=== PATIENT | male | born 1945 | race Caucasian/White ===

== ENCOUNTER 2016-11-29 14:29 | Outpatient (CLI) | payer MEDICARE, BC | END 2016-11-29 14:30 | disposition home or self-care (01) | DX: G47.33 Obstructive sleep apnea (adult) (pediatric) (principal) | CPT/HCPCS: 99214; G0463 ==

== ENCOUNTER 2017-09-20 08:40 | Outpatient (CLI) | payer MEDICARE, BC ==
[2017-09-20 10:32] LABS: BASOPHILS # (AUTO) 0.1 10^3/uL (0.0-0.1); BASOPHILS % (AUTO) 1.1 %; EOSINOPHILS # (AUTO) 0.2 10^3/uL (0.0-0.7); EOSINOPHILS % (AUTO) 2.3 %; LYMPHOCYTES # (AUTO) 1.9 10^3/uL (1.5-3.5); LYMPHOCYTES % (AUTO) 27.9 %; MEAN CORPUSCULAR HEMOGLOBIN 30.8 pg (27.0-31.0); MEAN PLATELET VOLUME 8.4 fL (7.4-11.4); MONOCYTES # (AUTO) 0.7 10^3/uL (0.0-1.0); NEUTROPHILS # (AUTO) 4.1 10^3/uL (1.5-6.6); NEUTROPHILS % (AUTO) 58.7 %; PLT - PLATELET COUNT 192 10^3/uL (130-450); RED BLOOD COUNT 5.18 10^6/uL (4.70-6.10); RED CELL DISTRIBUTION WIDTH 13.1 % (12.0-15.0); WHITE BLOOD COUNT 6.9 x10^3/uL (4.8-10.8)
[2017-09-20 10:48] LABS: ALBUMIN 4.3 g/dL (3.2-5.5); ALBUMIN/GLOBULIN RATIO 1.3 (1.0-2.2); ALKALINE PHOSPHATASE 50 IU/L (42-121); ALT ALANINE AMINOTRANSFERASE 31 IU/L (10-60); AST ASPARTATE AMINOTRANSFERASE 27 IU/L (10-42); BILIRUBIN,TOTAL 1.1 mg/dL (0.2-1.0); BUN - BLOOD UREA NITROGEN 17 mg/dL (6-20); CALCIUM 9.1 mg/dL (8.5-10.3); CARBON DIOXIDE - CO2 24 mmol/L (21-32); CHLORIDE 103 mmol/L (101-111); CHOL/HDL RATIO 5.5 (<5.0); CHOLESTEROL 198 mg/dL; CREATININE 1.1 mg/dL (0.6-1.2); GFR - MDRD 66 (>89); GLUCOSE 117 mg/dL (70-100); HDL CHOLESTEROL 36 mg/dL; LDL CHOLESTEROL,CALCULATED 131 mg/dL; LDL/HDL RATIO 3.6 (<3.6); SODIUM 136 mmol/L (135-145); TOTAL PROTEIN 7.5 g/dL (6.7-8.2); VLDL CHOLESTEROL 31 mg/dL
== END 2017-09-20 08:41 | disposition home or self-care (01) ==
LOC: LAB.F 08:40
PROVIDERS: ATTEND Nurse Practitioner Family
DX: G45.9 Transient cerebral ischemic attack, unspecified (principal); M85.80 Other specified disorders of bone density and structure, unspecified site; R03.0 Elevated blood-pressure reading, without diagnosis of hypertension; Z13.220 Encounter for screening for lipoid disorders
CPT/HCPCS: 36415; 80053; 80061; 83721; 84443; 85025

== ENCOUNTER 2017-11-09 09:42 | Outpatient (CLI) | payer MEDICARE, BC | END 2017-11-09 09:43 | disposition home or self-care (01) | LOC: SC 09:42 | PROVIDERS: ATTEND Nurse Practitioner Family | DX: G47.33 Obstructive sleep apnea (adult) (pediatric) (principal) | CPT/HCPCS: 99214; G0463; 99212 ==

== ENCOUNTER 2019-04-18 07:49 | Outpatient (CLI) | payer MEDICARE, BC ==
[2019-04-18 10:36] LABS: ALBUMIN 4.2 g/dL (3.2-5.5); ALBUMIN/GLOBULIN RATIO 1.4 (1.0-2.2); ALKALINE PHOSPHATASE 52 IU/L (42-121); ALT ALANINE AMINOTRANSFERASE 21 IU/L (10-60); AST ASPARTATE AMINOTRANSFERASE 19 IU/L (10-42); BILIRUBIN,TOTAL 0.7 mg/dL (0.2-1.0); BUN - BLOOD UREA NITROGEN 17 mg/dL (6-20); CALCIUM 9.3 mg/dL (8.5-10.3); CARBON DIOXIDE - CO2 24 mmol/L (21-32); CHLORIDE 105 mmol/L (101-111); CHOL/HDL RATIO 5.2 (<5.0); CHOLESTEROL 183 mg/dL; GFR - MDRD 73 (>89); GLUCOSE 123 mg/dL (70-100); HDL CHOLESTEROL 35 mg/dL; LDL CHOLESTEROL,CALCULATED 122 mg/dL; LDL/HDL RATIO 3.5 (<3.6); SODIUM 140 mmol/L (135-145); TOTAL PROTEIN 7.3 g/dL (6.7-8.2); VLDL CHOLESTEROL 26 mg/dL
[2019-04-18 10:49] LABS: HB2 TOTAL 16.9 g/dL; HEMOGLOBIN A1C 0.68 g/dL; HEMOGLOBIN A1C % 5.8 % (4.6-6.2)
== END 2019-04-18 07:50 | disposition home or self-care (01) ==
LOC: LAB.S 07:49
PROVIDERS: ATTEND Internal Medicine
DX: E78.5 Hyperlipidemia, unspecified (principal); R73.02 Impaired glucose tolerance (oral)
CPT/HCPCS: 36415; 80053; 80061; 83036; 83721

== ENCOUNTER 2019-06-13 10:15 | Outpatient (CLI) | payer MEDICARE, BC ==
[2019-06-13 11:15] VITALS: BP 118/70
--- NOTE | 2019-06-13 11:15 | SLEEP CARE CONSULTATION ---
Information from patient questionnaire entered by Charline Rodriguez. I have reviewed and concur with the information entered by Charline Rodriguez. This document represents the service I personally performed and the decisions made by me, Nel Rizvi, RN, MSN, [employer]. History of Present Illness Previous diagnosis: Very Severe, Obstructive Sleep Apnea-Hypopnea Syndrome AHI: 71.8 Reason for CPAP/BiPAP follow up: annual Equipment type: CPAP Equipment obtained from: [employer] Mask style: Nasal (Wisp) Mask brand: Respironics Backup mask available: Yes Last cushion change: 2 months ago CPAP Compliance Data - Data Reviewed with Patient Average duration of nightly device use: 6.7 Compliance rate %: 100 (180 days) Current pressure setting (cmH2O): 10 Humidity settin Average residual AHI: 0.4 Average large leak: 2 min 11 sec Subjective Patient concerns: reports: nasal congestion (mild and not interferring with use of CPAP ), other (machine is getting louder the last year). denies: aerophagia, mask discomfort, air blowing in eyes, mask leak noise, condensation in mask/hose, dry mouth, nose, throat, epistaxis Observed to snore while using device: No Current pressure setting perceived as: comfortable On therapy, patient: reports: sleeping better (cant sleep without CPAP), awakening more refreshed, being more awake and alert during the day, more rested overall. denies: drowsiness while driving Initial [place] Sleepiness Scale score: 7 Current [place] Sleepiness Scale score: 5 Allergies and Home Medications Known drug allergies: Yes Home medication list reviewed: Yes Allergy and home medication list: milk thistle daily niacin daily thyroid supplement 2 times week multivitamin Review of Systems Review of systems same as previous: Yes Physical Exam Blood Pressure: 118/70 Cuff size: long Heart Rate: 77 O2 Saturation: 95 Height: 5 ft 8 in Weight: 230 lb 9.6 oz Body Mass Index: 35.0 BMI Classification: Obesity Class 2 Impression and Plan 1. Obstructive Sleep Apnea-Hypopnea Syndrome, very severe, with good treatment compliance and good apnea control. On CPAP therapy, the patient has better sleep quality and is more rested overall. His CPAP is over 5 years old and of reasonable use. It is also starting to make louder noise. Thus I will update his CPAP. He prefers the Nuvyyostation autoCPAP. He is also having difficulty getting supplies, thus I will have my web marketing coordinator inform him of options to [place] [facility] DWO prescription will be made. He is also planning on losing weight so I will change his CPAP pressure to autoCPAP [id number]. His BMI is 35, class 2 obesity which increases apnea risk and overall health risks. We looked at the BMI chart and patient would like to get down to 200 pounds. I discussed the benefit of a diet consult to help reach his weight loss goals. He can discuss a referral with his PCP. In addition, as he loses weight, it will not only reduce apnea risk but pressure requirements. Symptoms to report discussed. Patient's apnea severity and rationale for treatment to reduce apnea, improve sleep quality and reduce cardiovascular and cerebrovascular events was reviewed. I also reviewed the benefit of consistent device use of CPAP for hypertension. * Update CPAP * Change CPAP pressure to 8-10 cmH2O * Notify me if snoring with mask or feeling that the pressure is too much or too little * Attempt to lose weight * Consider diet consultation. * Return for follow up in 1 month after new CPAP. , or sooner if concerns arise I spent 100% of this 30 minute visit face to face with the patient with greater than 50% of this was spent time counseling the patient and coordination of care.
== END 2019-06-13 10:16 | disposition home or self-care (01) ==
LOC: SC 10:15
PROVIDERS: ATTEND Nurse Practitioner Family
DX: G47.33 Obstructive sleep apnea (adult) (pediatric) (principal); E66.9 Obesity, unspecified; Z68.35 Body mass index [BMI] 35.0-35.9, adult
CPT/HCPCS: 99214; G0463; 99212

== ENCOUNTER 2019-09-18 10:58 | Outpatient (CLI) | payer MEDICARE, BC ==
[2019-09-18 11:00] VITALS: BP 110/76
--- NOTE | 2019-09-18 11:00 | SLEEP CARE CONSULTATION ---
Information from patient questionnaire entered by Charline Rodriguez. I have reviewed and concur with the information entered by Charline Rodriguez. This document represents the service I personally performed and the decisions made by me, Nel Rizvi, RN, MSN, [employer]. History of Present Illness Previous diagnosis: Very Severe, Obstructive Sleep Apnea-Hypopnea Syndrome AHI: 71.8 Reason for follow up: first compliance after device update Equipment type: CPAP Equipment obtained from: [employer] Mask style: Nasal (Wisp) Mask brand: Respironics Backup mask available: Yes Last cushion change: 2 weeks ago CPAP Compliance Data - Data Reviewed with Patient Average duration of nightly device use: 7.1 Compliance rate %: 100 (60 days) Current pressure setting (cmH2O): 8-10 Humidity settin Heated hose settin Average residual AHI: 3.2 Average large leak: 1 min 38 sec Subjective Patient concerns: denies: aerophagia, mask discomfort, air blowing in eyes, mask leak noise, condensation in mask/hose, nasal congestion, dry mouth, nose, throat, epistaxis, other Observed to snore while using device: No Current pressure setting perceived as: comfortable On therapy, patient: reports: sleeping better, awakening more refreshed, being more awake and alert during the day, more rested overall. denies: drowsiness while driving Initial [place] Sleepiness Scale score: 7 Current [place] Sleepiness Scale score: 7 Allergies and Home Medications Known drug allergies: No Home medication list reviewed: Yes Allergy and home medication list: multivitamin daily Relief factor joint health daily ibuprofen prn Review of Systems Review of systems same as previous: Yes Physical Exam Blood Pressure: 110/76 Cuff size: long Heart Rate: 60 O2 Saturation: 96 Height: 5 ft 8 in Weight: 226 lb 12.8 oz Body Mass Index: 34.4 BMI Classification: Obesity Class 1 Impression and Plan 1. Obstructive Sleep Apnea-Hypopnea Syndrome, very severe, with good treatment compliance and good apnea control. On CPAP therapy, the patient has better sleep quality and is more rested overall. He is pleased with quietness of new CPAP. He is losing weight with goal of 195, another 30 pounds. Currently patients BMI is 35.0 obesity class . Obesity increases the risk of apnea, CPAP pressure requirements and overall health risks especially cardiovascular and diabetes. Thus patient is advised to lose weight. Weight loss can be done with reducing portion size, refined foods and balancing content with vegetables, fruit and protein. He is also reducing sugar content. A diet consultation can be helpful in achieving optimal weight loss goals. The BMI chart was reviewed. The patient's weight loss goal will bring his BMI down to 26. Patient encouraged to discuss their weight loss goals with their PCP and consider a referral to a interventional sale consultant if unable to meet weight loss. The patient's autoCPAP pressure range will probably accomodate patient weight loss goal. Symptoms to report for additional pressure adjustment discussed. Patient's apnea severity and rationale for treatment to reduce apnea, improve sleep quality and reduce cardiovascular and cerebrovascular events was reviewed. Since apnea more severe supine, he is to avoid supine sleep and raise head of bed 30-40 if unable to use CPAP. * Continue CPAP pressure at 8-10 cmH2O * Notify me if snoring with mask or feeling that the pressure is too much or too little * Continue to lose weight * Call this office if any problems using CPAP * Return for follow up in 1 year, or sooner if concerns arise Time Spent with Patient (minutes): 20 I spent 100% of this visit face to face with the patient with greater than 50% of this was spent time counseling the patient and coordination of care.
== END 2019-09-18 10:59 | disposition home or self-care (01) ==
LOC: SC 10:58
PROVIDERS: ATTEND Nurse Practitioner Family
DX: G47.33 Obstructive sleep apnea (adult) (pediatric) (principal); E66.9 Obesity, unspecified; Z68.34 Body mass index [BMI] 34.0-34.9, adult
CPT/HCPCS: 99213; G0463; 99212

== ENCOUNTER 2020-11-13 14:03 | Outpatient (CLI) | payer MEDICARE, BC ==
--- NOTE | 2020-11-13 14:32 | SLEEP CARE CONSULTATION ---
Information from patient questionnaire entered by Glory Stringer. I have reviewed and concur with the information entered by Glory Stringer. This document represents the service I personally performed and the decisions made by , Kim Farrell ARNP. History of Present Illness Service Date and Time: 11/13/2020 1403 Previous diagnosis: Very Severe, Obstructive Sleep Apnea-Hypopnea Syndrome AHI: 71.8 Reason for follow up: annual (Last seen 08/2019) Equipment type: CPAP Equipment obtained from: [email or web address] (getting supplies as needed) Mask style: Nasal (Wisp) Mask brand: Respironics Backup mask available: Yes (old mask) Last cushion change: 1 week ago Year and Where: 2007 [facility] additional information: KACEY FRAUSTO was diagnosed to have severe, AHI 71.8, obstructive sleep apnea- hypopnea syndrome and returned today for CPAP therapy annual follow-up. CPAP Compliance Data - Data Reviewed with Patient Average duration of nightly device use: 7 h 2 min Compliance rate %: 98.3 Current pressure setting (cmH2O): 8-10 Humidity settin Heated hose settin Average residual AHI: 3.9 Average large leak: 5 min 10 sec Subjective Missed days of use due to: reports: other (power outages) Patient concerns: denies: aerophagia, mask discomfort, air blowing in eyes, mask leak noise, condensation in mask/hose, nasal congestion, dry mouth, nose, throat, epistaxis, other Observed to snore while using device: No Current pressure setting perceived as: comfortable On therapy, patient: reports: sleeping better, awakening more refreshed, being more awake and alert during the day, more rested overall. denies: drowsiness while driving Initial [place] Sleepiness Scale score: 14 (in 2007) Current [place] Sleepiness Scale score: 8 Allergies and Home Medications Home medication list reviewed: Yes (Metformin) Review of Systems Review of systems same as previous: No (cataracs removed) Physical Exam Heart Rate: 65 O2 Saturation: 98 Height: 5 ft 8 in Weight: 227 lb Body Mass Index: 34.4 BMI Classification: Obese Impression and Plan 1. Obstructive Sleep Apnea-Hypopnea Syndrome, severe, with good treatment compliance and good apnea control. On CPAP therapy, the patient has better sleep quality and is more rested overall. He has not issues or concerns with the CPAP or masks. He was encouraged to try to lose weight. Currently patients BMI is 34.4. Obesity increases the risk of apnea, CPAP pressure requirements and overall health risks especially cardiovascular and diabetes. Thus patient is advised to try to lose weight. Weight loss can be done with reducing portion size, reducing refined foods and balancing content with vegetables, fruit and whole grain foods. The patient's CPAP pressure range should accommodate some weight loss. Patient's apnea severity and rationale for treatment to reduce apnea, improve sleep quality and reduce cardiovascular and cerebrovascular events was reviewed. I also reviewed the benefit of consistent device use of CPAP for hypertension. * Continue auto CPAP pressure at 8-10 cmH2O * Notify me if snoring with mask or feeling that the pressure is too much or too little * Attempt to lose weight * Call this office if any problems using CPAP * Return for follow up in 1 year, or sooner if concerns arise Counseling Topics: Spare mask, Weight loss health impact Visit Type: In Office Time Spent with Patient (minutes): 12 Provider Statement: I spent 100% of the Face to Face Visit with the patient with greater than 50% spent counseling the patient and coordination of care.
== END 2020-11-13 14:04 | disposition home or self-care (01) ==
LOC: SC 14:03
PROVIDERS: ATTEND Nurse Practitioner Family
DX: G47.33 Obstructive sleep apnea (adult) (pediatric) (principal); E66.9 Obesity, unspecified; Z68.34 Body mass index [BMI] 34.0-34.9, adult
CPT/HCPCS: 99212; G0463

== ENCOUNTER 2023-03-30 08:00 | Outpatient (CLI) | payer MEDICARE, BC ==
--- NOTE | 2023-03-31 09:40 | XRAY Report ---
PROCEDURE: Finger(s) LT INDICATIONS: CRUSHING INJURY TO LEFT 5TH DIGIT TECHNIQUE: AP hand, 2 views of the fifth finger(s) acquired. COMPARISON: None. FINDINGS: Bones: Minimally displaced fracture seen along the base of the fifth distal phalanx with mild soft t issue swelling. Soft tissues: No suspicious soft tissue calcifications or masses. IMPRESSION: Intra-articular fracture involving the base of the fifth distal phalanx with adjacent soft tissue swe lling. Reviewed by: KASANDRA Fowler on 03/31/2023 9:39 AM PDT Approved by: Adrián Chapa MD on 03/31/2023 9:39 AM PDT Station ID: [id number]
== END 2023-03-30 23:59 | disposition home or self-care (01) ==
LOC: DI.S 08:00
PROVIDERS: ATTEND Nurse Practitioner
DX: S62.637A Displaced fracture of distal phalanx of left little finger, initial encounter for closed fracture (principal)

== ENCOUNTER 2023-04-14 10:13 | Outpatient (CLI) | payer MEDICARE, BC ==
--- NOTE | 2023-04-14 10:36 | Sleep Patient Instructions ---
Sleep Center Visit Summary - Patient Visit Information Reason for Visit: Annual visit for PAP therapy - Patient Instructions Additional Instructions: You will continue with CPAP therapy with pressure set at 8-10 cmH2O. A supply prescription will be updated with your DME. We encourage you to continue to try to lose weight. Please follow up with the sleep care office in 1 year. - Clinic Information Contact: [facility] [address] [place] [address] [email or web address] T: [phone]
--- NOTE | 2023-04-14 10:39 | SLEEP CARE CONSULTATION ---
Information from patient questionnaire entered by Emeli Munoz. I have reviewed and concur with the information entered by Emeli Munoz. This document represents the service I personally performed and the decisions made by , Kim Farrell ARNP. History of Present Illness Service Date and Time: 04/14/2023 1013 Previous diagnosis: Very Severe, Obstructive Sleep Apnea-Hypopnea Syndrome AHI: 71.8 Reason for follow up: annual (LAST SEEN 03/2022) Equipment type: CPAP (Dreamstation, recertified; SD CARD NEEDED) Equipment obtained from: [employer] (getting supplies as needed) Mask style: Nasal (Wisp) Mask brand: Respironics Backup mask available: Yes (old mask) Last cushion change: 3 weeks Prior sleep studies: Yes Year and Where: 2007 [facility] additional information: KACEY FRAUSTO was diagnosed to have very severe, AHI 71.8, obstructive sleep apnea-hypopnea syndrome and returned today for CPAP therapy annual follow-up. Sleep Study - Results Prior sleep studies: Yes Year and Where: 2007 [facility] CPAP Compliance Data - Data Reviewed with Patient Average duration of nightly device use: 6 hours 42 minutes Compliance rate %: 99.4 (179/180 days used) Current pressure setting (cmH2O): 8-10 Average residual AHI: 2.5 Central apnea: 0.1 Obstructive apnea: 0.4 Hypopnea: 2.0 Average large leak: 4 mins 17 secs On Oxygen: No Subjective Patient concerns: denies: aerophagia, mask discomfort, air blowing in eyes, mask leak noise, condensation in mask/hose, nasal congestion, dry mouth, nose, throat, epistaxis Observed to snore while using device: No Current pressure setting perceived as: comfortable On therapy, patient: reports: sleeping better, awakening more refreshed, being more awake and alert during the day, more rested overall. denies: drowsiness while driving Initial [place] Sleepiness Scale score: 14 (in 2007) Current [place] Sleepiness Scale score: 7 (04/14/23) Allergies and Home Medications Known drug allergies: No Drug allergies reviewed: Yes Home medication list reviewed: Yes (no changes) Allergy and home medication list: Allergies No Known Drug Allergies Allergy (Verified 04/13/23 08:41) Review of Systems Review of systems same as previous: Yes (no changes) Physical Exam Vital signs obtained and entered by: EMELI Kendall MA Blood Pressure: 122/70 (LEFT ARM) Cuff size: regular Heart Rate: 64 O2 Saturation: 96 Height: 5 ft 8 in Weight: 224 lb 3.2 oz Weight change since last visit: 8 lb gain Body Mass Index: 34.0 BMI Classification: Obese Impression and Plan 1. Obstructive Sleep Apnea-Hypopnea Syndrome, very severe, with good treatment compliance and good apnea control. On CPAP therapy, the patient has better sleep quality and is more rested overall. Patient has significant improvement of their sleep apnea and is satisfied with current CPAP therapy. Patient denies problems with oral dryness, nasal congestion, epistaxis, skin irritation or aerophagia. Patient's apnea severity and rationale for treatment to reduce apnea, improve sleep quality and reduce cardiovascular and cerebrovascular events was reviewed. I also reviewed the benefit of consistent device use of CPAP for hypertension. 2. Obesity, unspecified. Currently patients BMI is 34. He has gained some weight from last year but states he is losing from the 230 lbs he started with prior to our last visit. Obesity increases the risk of apnea, CPAP pressure requirements and overall health risks especially cardiovascular and diabetes. Thus patient is advised to lose weight. * Continue auto CPAP pressure at 8-10 cmH2O * Update supplies * Notify me if snoring with mask or feeling that the pressure is too much or too little * Attempt to lose weight * Call this office if any problems using CPAP * Return for follow up in 1 year, or sooner if concerns arise * Counseling Topics: Spare mask, Weight loss health impact Prescriptions: Device supplies Visit Type: In Office Time Spent with Patient (minutes): 20 Provider Statement: I spent 100% of the Face to Face Visit with the patient with greater than 50% spent counseling the patient and coordination of care.
[2023-04-14 10:40] VITALS: BP 122/70; O2SAT 96
== END 2023-04-14 10:14 | disposition home or self-care (01) ==
LOC: SC 10:13
PROVIDERS: ATTEND Nurse Practitioner Family
DX: G47.33 Obstructive sleep apnea (adult) (pediatric) (principal); E66.9 Obesity, unspecified; Z68.34 Body mass index [BMI] 34.0-34.9, adult
CPT/HCPCS: 99213; G0463; 99212

== ENCOUNTER 2023-10-03 06:20 | Day surgery (SDC) | payer MEDICARE, BC ==
[2023-10-03] MEDS: LACTATED RINGERS 1,000 ML IV ONE (06:29)
[2023-10-03] MEDS ORDERED: PROPOFOL 500 MG/50 ML 0 MG/0 ML VIAL ONE (07:17)
[2023-10-03] MEDS ORDERED: PROPOFOL 500 MG/50 ML 500 MG/50 ML VIAL ONE (07:37)
--- NOTE | 2023-10-03 07:38 | ANESTHESIA ---
Pre-Anesthesia VS, & Labs - Diagnosis screening, family history polyps - Procedure colonoscopy Vital Signs: Temp Pulse Resp BP Pulse Ox O2 Flow Rate 36.2 C L 82 18 153/87 H 95 10/03/23 06:29 10/03/23 06:29 10/03/23 06:29 10/03/23 06:29 10/03/23 06:29 Height: 5 ft 8 in Weight (kg): 100.9 kg Body Mass Index: 33.8 BMI Classification: Obese - NPO >8 hours Last Fluid Intake: am prep - Lab Results Lab results reviewed: Yes Home Medications and Allergies Ibuprofen 600 mg PO Q8HR PRN 01/19/16 Chromium Picolinate See Rx Instructions .ROUTE .COMPLEX 04/14/23 Isogenic [place] See Rx Instructions .ROUTE .COMPLEX 04/14/23 Multivitamin See Rx Instructions .ROUTE .COMPLEX 04/14/23 Relief Factor See Rx Instructions .ROUTE .COMPLEX 04/14/23 Allergies/Adverse Reactions: Allergies Allergy/AdvReac Type Severity Reaction Status Date / Time No Known Drug Allergies Allergy Verified 10/03/23 06:29 Anes History & Medical History - Anesthetic History Anesthesia Complications: reports: No previous complications Family history of Anesthesia Complications: Denies Family history of Malignant Hyperthermia: Denies - Medical History Cardiovascular: reports: None Pulmonary: reports: Sleep apnea, CPAP use Gastrointestinal: reports: None Urinary: reports: None Musculoskeletal: reports: Chronic back pain Endocrine/Autoimmune: reports: None Skin: reports: None - Surgical History General: reports: Cholecystectomy, Colonoscopy Exam General: Alert, Oriented x3, Cooperative Dental: WNL Mouth Openin Fingerbreadth Neck Mobility: Normal Mallampati classification: II Thyromental Distance: 4-6 cm Respiratory: Lungs clear, Normal breath sounds, No respiratory distress Cardiovascular: Regular rate Neurological: Normal speech Mental/Cognitive Status: Alert/Oriented X3, Normal for patient Cognitive Status: Within normal limits Plan Anesthesia Type: Total IV Consent for Procedure(s) Verified and Reviewed: Yes Code Status: Attempt Resuscitation ASA classification: 2-Mild systemic disease Is this case an emergency?: No
[2023-10-03] MEDS: LACTATED RINGERS 600 ML IV ONE (08:16)
[2023-10-03 09:03] VITALS: BP 118/76; O2SAT 95
--- NOTE | 2023-10-03 12:14 | ANESTHESIA POST OP EVALUATION ---
Anesthesia Post Eval - Post Anesthesia Eval Vitals: Last Vital Signs Temp 36.5 C 10/03/23 08:55 Pulse 66 10/03/23 08:55 Resp 16 10/03/23 08:55 BP 118/76 10/03/23 08:55 Pulse Ox 95 10/03/23 08:55 O2 Flow Rate CV Function Including HR & BP: Stable Pain Control: Satisfactory Nausea & Vomiting: Negative Mental Status: Baseline Respiratory Status: Airway Patent Hydration Status: Satisfactory Anesthesia Complications: None
== END 2023-10-03 06:21 | disposition home or self-care (01) ==
LOC: SDS 06:20
PROVIDERS: ATTEND Surgery
DX: Z12.11 Encounter for screening for malignant neoplasm of colon (principal); K64.1 Second degree hemorrhoids; Z80.0 Family history of malignant neoplasm of digestive organs; E66.9 Obesity, unspecified; Z68.33 Body mass index [BMI] 33.0-33.9, adult
CPT/HCPCS: G0121; J7120